=== PATIENT | female | born 1930 | race Caucasian/White ===

== ENCOUNTER → 2017-06-23 | Outpatient (CLI) | payer MEDICARE ==
[~2017-06-23] MED LIST: ACULAR 3ML 3 ML5 ML OPH; AMOXICILLIN500 MG PO; ANAPROX DS550 MG PO; AUGMENTIN 875 M1 TAB PO; CEFTIN250 MG PO; CLINDAMYCIN HC300 MG PO; LASIX20 MG PO; NORVASC5 MG PO; OCUFLOX 0.3% 5 M5 ML OPH; POTASSIUM20 MEQ PO; PRED FORTE 5 ML5 ML OPH; PRESERVISION1 SGL PO; ULTRAM50 MG PO; Vicodin 5/500 505 MG PO; ZANTAC 150150 MG PO; ZOCOR20 MG PO
== END ==
LOC: RAD 12:39
DX: Z13.820 Encounter for screening for osteoporosis (principal); Z78.0 Asymptomatic menopausal state

== ENCOUNTER 2017-08-26 10:03 | Emergency (ER) | payer MEDICARE ==
[~2017-08-26] VITALS: Ht 170.1 cm; Wt 61.2 kg
[2017-08-26 10:26] VITALS: BP 135/85
[2017-08-26 10:46] LABS: BASO % 0.1 % (0.0-1.0); EOS % 0.3 % (1.0-4.0); HEMATOCRIT 40.3 % (37.0-47.0); HEMOGLOBIN 13.7 g/dl (12.0-16.0); LYMPH # 1.3 10*3/uL (1.3-4.4); LYMPH % 16.5 % (27.0-41.0); MEAN CORPUSCULAR HGB 31.3 pg (27.0-31.0); MEAN PLATELET VOLUME 9.4 fl (9.6-12.3); MONO # 0.9 10*3/uL (0.1-1.0); MONO % 10.9 % (3.0-9.0); NEUT # 5.6 10*3/uL (2.3-7.9); NEUT % 71.6 % (47.0-73.0); PLATELET COUNT AUTOMATED 171 10*3/uL (130-400); RED BLOOD COUNT 4.38 10*6/uL (4.10-5.10); RED CELL DISTRI WIDTH 13.2 % (0-14.5); WHITE BLOOD COUNT 7.8 10*3/uL (4.8-10.8)
[2017-08-26 11:02] LABS: ALBUMIN 3.2 gm/dl (3.1-4.5); ALKALINE PHOSPHATASE 113 U/L (45-117); BUN 12 mg/dl (7-24); CHLORIDE 102 mmol/L (98-107); CREATININE 0.78 mg/dL (0.55-1.02); POTASSIUM 3.8 mmol/L (3.5-5.1); SGOT/AST 18 IU/L (3-35); SGPT/ALT 18 U/L (12-78); SODIUM 137 mmol/L (136-145); TOTAL PROTEIN 7.6 gm/dL (6.4-8.2)
[2017-08-26 11:05] LABS: TROPONIN I < 0.015 ng/ml (<0.045)
== END 2017-08-26 12:00 | disposition home or self-care (01) ==
LOC: ED 10:03
PROVIDERS: Emergency Medicine
DX: R05 Cough (principal); R11.0 Nausea; Z90.89 Acquired absence of other organs; Z79.899 Other long term (current) drug therapy; Z88.1 Allergy status to other antibiotic agents; Z88.2 Allergy status to sulfonamides; Z88.8 Allergy status to other drugs, medicaments and biological substances

== ENCOUNTER 2017-12-12 02:46 | Emergency (ER) | payer MEDICARE ==
[~2017-12-12] VITALS: Ht 170.1 cm; Wt 62.1 kg
[2017-12-12 02:47] VITALS: BP 169/95
[2017-12-12] MEDS ORDERED: ULTRAM50 MG PO (04:19)
[2018-01-14] MEDS ORDERED: REFRESH OPTIVE10 M1 OPH (10:14)
== END 2017-12-12 04:22 | disposition home or self-care (01) ==
LOC: ED 02:46
DX: S22.32XA Fracture of one rib, left side, initial encounter for closed fracture (principal); Z79.899 Other long term (current) drug therapy; Z88.2 Allergy status to sulfonamides; Z88.1 Allergy status to other antibiotic agents; W17.89XA Other fall from one level to another, initial encounter; Y93.89 Activity, other specified; Y92.89 Other specified places as the place of occurrence of the external cause; Y99.8 Other external cause status

== ENCOUNTER 2018-01-04 10:56 | Inpatient (IN) | payer MEDICARE ==
[~2018-01-04] VITALS: Ht 170.1 cm; Wt 62.2 kg
--- NOTE | ~2018-01-04 | CON ---
[place], [place] REPORT OF CONSULTATION [id number] UNIT #: [id number] ROOM: 512 DOCTOR: TERRI TOSCANOALAYNA BIRTHDATE: [birth year] DOS: 01/04/2018 GASTROENDOSCOPIC REPORT HISTORY OF PRESENT ILLNESS: The patient has presented with a chief complaint of rectal bleed. The toilet becomes full of blood and she comes concerned. She is 87 years old. She comes to the Emergency Room with blood in stool and quite scared of her blood appearance of large volume and quality. Her INR was 1.0. Her CBC, H and H 12 and 39. Comprehensive metabolic panel, electrolyte balance, liver function test, alkaline phosphatase 192. PAST MEDICAL HISTORY: Hypertension, DVT, macular degeneration, non-Hodgkin's lymphoma. PAST SURGICAL HISTORY: Parathyroidectomy, lymph node biopsy, cataract, IVC filter. FAMILY HISTORY: Noncontributory. ALLERGIES: ERYTHROMYCIN AND BACTRIM PRODUCT. MEDICATIONS: At home including no blood thinners. REVIEW OF SYSTEMS: HEENT: Denies double vision, blurred vision. RESPIRATORY: Denies acute shortness of breath. CARDIOVASCULAR: Denies chest pain. DIGESTIVE SYSTEM: Blood per stool. No hematemesis. PHYSICAL EXAMINATION: VITAL SIGNS: Noted to be stable. HEENT: Head normocephalic, nontraumatic. Mouth and buccal mucosa benign. NECK: Supple, no thyromegaly, no cervical lymphadenopathy. CHEST: Symmetric anatomy, equal expansion. No wheeze, no rhonchi. HEART: Normal sinus rhythm, no gallop, no murmur. ABDOMEN: Soft. No hepato-organomegaly. Bowel sounds present. No pulsatile mass. RECTAL: No blood to the glove at all, but I can feel small internal hemorrhoids. EXTREMITIES: No cyanosis, no pedal edema. NEUROLOGIC: Fully alert, oriented to time, place, person. IMPRESSION: Most likely hemorrhoidal bleed, however, we are going to organize a colonoscopy on her. Prep is going to start. We are going to follow up on H and H. Other adjunctive diagnoses as outlined in paragraph past medical, surgical history. Family was comforted that there is no active bleeding continuing at the present time. OTHER ADJUNCTIVE DIAGNOSES: Hypertension, vitamin D deficiency, rib fracture history. [place], [place] REPORT OF CONSULTATION NAME: MARK BARCENAS UNIT #: [id number] ROOM: 512 DOCTOR: TERRI TOSCANO,ALAYNA BIRTHDATE: [birth year] ALAYNA MURRAY MD CM:CONSTR:REPORT OF CONSULTATION 1606 01/05/18 0306 interface
[2018-01-04 10:56] VITALS: BP 147/106
[2018-01-04 11:30] LABS: BASO % 0.5 % (0.0-1.0); EOS # 0.1 10*3/uL (0.0-0.4); EOS % 1.9 % (1.0-4.0); HEMATOCRIT 39.1 % (37.0-47.0); HEMOGLOBIN 12.7 g/dl (12.0-16.0); LYMPH # 1.1 10*3/uL (1.3-4.4); LYMPH % 28.5 % (27.0-41.0); MEAN CORPUSCULAR HGB 31.5 pg (27.0-31.0); MEAN CORPUSCULAR HGB CONC 32.5 g/dl (33.0-37.0); MONO # 0.5 10*3/uL (0.1-1.0); NEUT # 2.1 10*3/uL (2.3-7.9); NEUT % 56.6 % (47.0-73.0); PLATELET COUNT AUTOMATED 187 10*3/uL (130-400); RED BLOOD COUNT 4.03 10*6/uL (4.10-5.10); RED CELL DISTRI WIDTH 13.2 % (0-14.5); WHITE BLOOD COUNT 3.8 10*3/uL (4.8-10.8)
[2018-01-04 11:38] LABS: ACT PARTIAL THROMBO TIME 25.1 SECONDS (20.8-31.5)
[2018-01-04 11:46] LABS: ALBUMIN 3.4 gm/dl (3.1-4.5); BUN 18 mg/dl (7-24); CHLORIDE 106 mmol/L (98-107); CREATININE 0.78 mg/dL (0.55-1.02); POTASSIUM 4.1 mmol/L (3.5-5.1); SODIUM 141 mmol/L (136-145)
[2018-01-04 11:54] LABS: SGOT/AST 9 IU/L (3-35); SGPT/ALT 11 U/L (12-78); TOTAL PROTEIN 7.9 gm/dL (6.4-8.2)
[2018-01-04 11:55] LABS: TROPONIN I < 0.015 ng/ml (<0.045)
[2018-01-04 13:18] VITALS: BP 145/86
[2018-01-04 13:29] VITALS: BP 167/94
[2018-01-04 14:26] LABS: ALKALINE PHOSPHATASE 192 U/L (45-117)
[2018-01-04] MEDS ORDERED: COMBIGAN 0.2%-0.5 ML OU (14:30)
[2018-01-04] MEDS ORDERED: LUMIGAN50 DRP OU (14:31)
[2018-01-04] MEDS ORDERED: REFRESH TEARS15 ML OU (14:33)
[2018-01-04 16:00] VITALS: BP 176/96
[2018-01-04 18:51] VITALS: BP 154/58; BP 154/88
[2018-01-04] MEDS ORDERED: FOSAMAX70 M1 PO (21:37)
[2018-01-04] MEDS ORDERED: CALCIUM 250+D1 EACH PO (21:38)
[2018-01-04] MEDS ORDERED: PRESERVISION A1 EACH PO (21:39)
[2018-01-05 01:15] VITALS: BP 125/61
[2018-01-05 06:43] LABS: BASO % 0.4 % (0.0-1.0); EOS # 0.1 10*3/uL (0.0-0.4); EOS % 1.9 % (1.0-4.0); HEMOGLOBIN 13.3 g/dl (12.0-16.0); LYMPH # 1.5 10*3/uL (1.3-4.4); LYMPH % 31.9 % (27.0-41.0); MEAN CELL VOLUME 96.2 fl (81.0-99.0); MEAN CORPUSCULAR HGB 31.2 pg (27.0-31.0); MEAN CORPUSCULAR HGB CONC 32.4 g/dl (33.0-37.0); MONO # 0.7 10*3/uL (0.1-1.0); MONO % 13.8 % (3.0-9.0); NEUT # 2.5 10*3/uL (2.3-7.9); NEUT % 51.6 % (47.0-73.0); PLATELET COUNT AUTOMATED 193 10*3/uL (130-400); RED BLOOD COUNT 4.26 10*6/uL (4.10-5.10); RED CELL DISTRI WIDTH 13.2 % (0-14.5); WHITE BLOOD COUNT 4.8 10*3/uL (4.8-10.8)
[2018-01-05 07:09] LABS: CHLORIDE 107 mmol/L (98-107); SODIUM 142 mmol/L (136-145)
[2018-01-05 07:23] LABS: ALBUMIN 3.4 gm/dl (3.1-4.5); ALKALINE PHOSPHATASE 188 U/L (45-117); BUN 12 mg/dl (7-24); CHOLESTEROL 213 mg/dL (<200); CREATININE 0.81 mg/dL (0.55-1.02); FREE T4 1.05 ng/dl (0.76-1.46); HDL CHOLESTEROL 60 mg/dl (40-60); LDL CHOLESTEROL 137 mg/dL (9-159); PHOSPHOROUS 2.9 mg/dL (2.5-4.9); SGOT/AST 12 IU/L (3-35); SGPT/ALT 11 U/L (12-78); TRIGLYCERIDES 80 mg/dl (<150); VLDL CHOLESTEROL 16 mg/dL (6-40)
[2018-01-05 08:00] VITALS: BP 150/90; BP 155/97
[2018-01-05 09:03] LABS: VITAMIN D, 25-HYDROXY 22.2 ng/mL (30-100)
[2018-01-05] MEDS ORDERED: MIRALAX POWDER17 G1 PO (10:48)
[2018-01-14] MEDS ORDERED: REFRESH OPTIVE10 M1 OPH (10:14)
== END 2018-01-05 14:30 | disposition home or self-care (01) | DRG 379 ==
LOC: ED 10:56 → 5E 12:38 → EDHOLD 12:38 → 5E 13:01
PROVIDERS: Nurse Practitioner Family; Registered Nurse
DX: K92.2 Gastrointestinal hemorrhage, unspecified (principal); E55.9 Vitamin D deficiency, unspecified; H35.30 Unspecified macular degeneration; I10 Essential (primary) hypertension; Z86.718 Personal history of other venous thrombosis and embolism; Z85.72 Personal history of non-Hodgkin lymphomas; Z98.49 Cataract extraction status, unspecified eye; Z88.1 Allergy status to other antibiotic agents; Z79.899 Other long term (current) drug therapy; Z87.81 Personal history of (healed) traumatic fracture; Z82.49 Family history of ischemic heart disease and other diseases of the circulatory system; Z92.21 Personal history of antineoplastic chemotherapy; Z92.3 Personal history of irradiation

== ENCOUNTER → 2018-01-15 | Day surgery (SDC) | payer MEDICARE ==
[~2018-01-15] VITALS: Ht 170.1 cm; Wt 86.2 kg
[~2018-01-15] MED LIST changes: +CALCIUM 250+D1 EACH PO; +COMBIGAN 0.2%-0.5 ML OU; +FOSAMAX70 M1 PO; +LUMIGAN50 DRP OU; +MIRALAX POWDER17 G1 PO; +PRESERVISION A1 EACH PO; +REFRESH OPTIVE10 M1 OPH; +REFRESH TEARS15 ML OU
--- NOTE | ~2018-01-15 | O ---
[place], [place] OPERATIVE NOTE NAME: MARK BARCENAS UNIT #: [id number] ROOM: DOCTOR: ALAYNA MURRAY MD BIRTHDATE: [birth year] DOS: 01/15/2018 GASTROENDOSCOPIC REPORT HISTORY OF PRESENT ILLNESS: The patient has presented with a lower GI bleed repeatedly and painful around the rectum. PAST MEDICAL HISTORY: Osteoporosis, hypertension, lymphoma, status post therapy, in remission. PAST SURGICAL HISTORY: Status post parathyroidectomy. ALLERGIES: BACTRIM PRODUCT. SOCIAL HISTORY: Nonsmoker, nonalcohol consumer. FAMILY HISTORY: Noncontributory. PROCEDURE: Today's procedure part of investigation is colonoscopy and polypectomy with a snare. PREMEDICATION: Propofol. SCOPE: Olympus forwarding colonoscope 10L video. REPORT: After putting the patient in left lateral position and application of lubricant to rectal pouch and digital examination, the scope was introduced. Thereafter, under direct visualization, advanced through the length of colon without difficulty. Diverticulosis was appreciated. A polypoid lesion pendular at 10 cm from the rectum in rectal pouch was encountered with the snare with polypectomy entirely removed. Diverticulosis of the left colon, particularly was appreciated. The scope was negotiated to about hepatic flexure and liquid stool was noticed, tortuosity of the colon was hindering. Further advancement without being safe. Scope was withdrawn back to the rectum with ulcerated cluster hemorrhoid at 7 o'clock position. GI reflexion of the scope confirms the large hemorrhoid with ulceration on the surface. PLAN AND DISCUSSION: This requires surgical ablation, hemorrhoidectomy. I will discussed with the patient to see if she would like to undergo such procedure. Otherwise, the obvious source of lower GI bleed was hemorrhoid. In other findings, diverticulosis, tortuous colon, polyp of rectal pouch is status post snare polypectomy, and hemorrhoids. Supportive therapy until the patient's decision regarding hemorrhoidectomy otherwise. [place], [place] OPERATIVE NOTE NAME: MARK BARCENAS UNIT #: [id number] ROOM: DOCTOR: ALAYNA MURRAY MD BIRTHDATE: [birth year] ALAYNA MURRAY MD CM:JACIECORD:OPERATIVE NOTE [id number] VANESSA RICKETTS MD 01/15/18 1839 interface
[2018-01-15 13:30] VITALS: BP 156/79
[2018-01-15 17:05] VITALS: BP 98/66
[2018-01-15 17:15] VITALS: BP 113/78
[2018-01-15 17:30] VITALS: BP 140/80
== END | disposition home or self-care (01) ==
LOC: SDC 01-14 14:00
DX: D12.8 Benign neoplasm of rectum (principal); K57.30 Diverticulosis of large intestine without perforation or abscess without bleeding; K63.89 Other specified diseases of intestine; K64.8 Other hemorrhoids; I10 Essential (primary) hypertension; E07.9 Disorder of thyroid, unspecified; H40.9 Unspecified glaucoma; M81.0 Age-related osteoporosis without current pathological fracture; Z98.890 Other specified postprocedural states; Z88.8 Allergy status to other drugs, medicaments and biological substances; Z79.899 Other long term (current) drug therapy; Z85.72 Personal history of non-Hodgkin lymphomas; Z88.2 Allergy status to sulfonamides; Z87.01 Personal history of pneumonia (recurrent)

== ENCOUNTER → 2018-01-29 | Day surgery (SDC) | payer MEDICARE ==
[~2018-01-29] VITALS: Ht 170.1 cm; Wt 62.1 kg
--- NOTE | ~2018-01-29 | O ---
[place], [place] OPERATIVE NOTE NAME: MARK BARCENAS [facility] #: [id number] UNIT #: [id number] ROOM: DOCTOR: TERRI TOSCANO,ALAYNA BIRTHDATE: [birth year] DOS: 01/29/2018 HISTORY OF PRESENT ILLNESS: The patient is an 87-year-old who has had a colonoscopy previously done, at the 10 cm biopsy shows possible infiltration of mucosa to the colon with involvement of adenocarcinoma cancer and therefore we are re-biopsying the old polypectomy site and tattoo marking for not only pathological confirmation, also for tattoo marking for surgical site identification. PROCEDURE: Today's procedure part of investigation is colonoscopy plus biopsy and tattoo marking. PREMEDICATION: Propofol. SCOPE: Olympus forwarding-viewing colonoscope 10L video. REPORT: After putting the patient in left lateral position and application of lubricant to rectal pouch and digital examination, scope was introduced. Thereafter, under direct visualization, advanced to right colon and withdrawn back, polypectomy site at 10 cm was identified. Multiple biopsies obtained. Tattoo marking done ruling out adenocarcinoma infiltration and decisions regarding management in future. ALAYNA MURRAY MD CM:OPRECORD:OPERATIVE NOTE [id number] ALAYNA MURRAY MD 01/29/18 1322 interface
[2018-01-29 10:30] VITALS: BP 147/78
[2018-01-29 12:49] VITALS: BP 94/56
[2018-01-29 13:03] VITALS: BP 112/67
[2018-01-29 13:20] VITALS: BP 124/68
== END | disposition home or self-care (01) ==
LOC: SDC 01-28 08:00
DX: K62.1 Rectal polyp (principal); I10 Essential (primary) hypertension; H40.9 Unspecified glaucoma; E07.9 Disorder of thyroid, unspecified; E78.00 Pure hypercholesterolemia, unspecified; Z98.890 Other specified postprocedural states; Z82.49 Family history of ischemic heart disease and other diseases of the circulatory system; Z86.010 Personal history of colon polyps; Z79.899 Other long term (current) drug therapy; Z87.01 Personal history of pneumonia (recurrent)